=== PATIENT | female | born 1945 | race Caucasian/White ===

== ENCOUNTER → 2017-06-13 | Outpatient (CLI) | payer MEDICARE, OTHER ==
[~2017-06-13] MED LIST: ALPR0.25 PO; ALPR0.5T6 PO; ASCO100T5 PO; ASPI-496 PO; CALC1TAB PO; CYAN10005 PO; DIAZ5TAB4 PO; DOCU100C PO; FLUT1AER IH; FOLI0.8T2 PO; HYDR500C3 PO; METH500T10 PO; METH500T98 PO; MULT-309 PO; OMEG1CAP34 PO; OMEP10CA2 PO; OMEP40CA6 PO; OXYC-302 PO; OXYC1TAB7 PO; PRED1TAB PO; SENN1TAB67 PO; SIMV20TA3 PO; SIMV5TAB5 PO; TRAM50TA2 PO; VENL37.52 PO; VENL75TA PO; Vitamin c PO; ZOLP-413 PO; ZOLP10TA5 PO; collagen PO
[2017-06-13 13:15] LABS: DIFF TOTAL CELLS COUNTED 100 CELL DIFF
[2017-06-13 13:17] LABS: ASPARTATE AMINO TRANSFERASE 25 U/L (15-37); BLOOD UREA NITROGEN 15 mg/dL (7-18)
[2017-06-13 13:18] LABS: VERIFY COUNTS? YES
[2017-06-13 13:19] LABS: LARGE PLATELETS 1+
== END | disposition home or self-care (01) ==
LOC: CFH 08:37
PROVIDERS: ATTEND Specialist
DX: I10 Essential (primary) hypertension (principal); K21.9 Gastro-esophageal reflux disease without esophagitis; E78.1 Pure hyperglyceridemia; C34.31 Malignant neoplasm of lower lobe, right bronchus or lung; J44.0 Chronic obstructive pulmonary disease with (acute) lower respiratory infection; R91.1 Solitary pulmonary nodule; R45.89 Other symptoms and signs involving emotional state; F41.9 Anxiety disorder, unspecified; M46.82 Other specified inflammatory spondylopathies, cervical region; M25.78 Osteophyte, vertebrae; D64.9 Anemia, unspecified; D47.3 Essential (hemorrhagic) thrombocythemia; D72.821 Monocytosis (symptomatic)
CPT/HCPCS: 36415; 80053; 80061; 84443; 85025

== ENCOUNTER 2021-04-28 09:21 | Outpatient (CLI) | payer MEDICARE, OTHER ==
[~2021-04-28 09:21] MED LIST changes: -ALPR0.5T6 PO; +ALPR0.5T93 PO; +CYAN-27 PO; -CYAN10005 PO; +DOCU-192 PO; -DOCU100C PO; -FOLI0.8T2 PO; +FOLI0.8T5 PO; -OMEP40CA6 PO; +OMEP40CA8 PO; -OXYC-302 PO; +OXYC1TAB14 PO; -PRED1TAB PO; +PRED1TAB19 PO; +SIMV20TA19 PO; -SIMV20TA3 PO; +SIMV5TAB14 PO; -SIMV5TAB5 PO
== END 2021-04-28 23:59 | disposition home or self-care (01) ==
LOC: CFH 09:21
PROVIDERS: ATTEND Internal Medicine
DX: C34.30 Malignant neoplasm of lower lobe, unspecified bronchus or lung (principal); J44.0 Chronic obstructive pulmonary disease with (acute) lower respiratory infection
CPT/HCPCS: 71250